=== PATIENT | female | born 1935 | race Caucasian/White ===

== ENCOUNTER → 2016-06-27 | Outpatient (CLI) | payer SELFPAY ==
--- NOTE | 2016-06-27 15:30 | RAD ---
Indication cough. PA and lateral views of the chest were obtained. No prior imaging of the chest is available. The heart and pulmonary vessels appear normal. There are suggested emphysematous changes in the upper lobes. A focal infiltrate in either lung is not seen. Significant pleural fluid is not present. There is no pneumothorax. IMPRESSION: No acute or focal process is seen in the chest
== END | disposition home or self-care (01) ==
LOC: DXRADRC 13:13
PROVIDERS: ATTEND Nurse Practitioner Family
DX: R05 Cough (principal)
CPT/HCPCS: 71020

== ENCOUNTER 2018-04-24 11:44 | Inpatient (IN) | payer MEDICARE, BC ==
[~2018-04-24] VITALS: Ht 160 cm; Wt 107.0 kg
[~2018-04-24 11:44] MED LIST: ASPI81TA59 PO; DILT240C2 PO; ESCITALOPRAM OX10 MG PO; GABA800T3 PO; LISI10TA2 PO; OMEP40CA5 PO; POTA10TA10 PO; RAMI2.5C2 PO; SOLI10TA2 PO; TOLT2CAP PO
[2018-04-24] MEDS ORDERED: IV NORMAL SALINE 1,000ML 1,000 ML IV ONE ×3 (12:00→15:15)
--- NOTE | 2018-04-24 12:07 | PHYS DOC ---
Adult General Chief Complaint Chief Complaint: Neck Pain HPI HPI 83-year-old female presents via EMS from a nursing facility with right-sided facial swelling. According to the report given EMS, the swelling showed up yesterday. She was given 2 doses of Keflex. It appeared to be significantly worse today so they sent her to the emergency room. The patient is unable to tell me very much. She is able to me that it hurts on the right side of her face. When asked if she is able to eat she says yes. Patient was reported to be going on hospice soon, when I ask her about this she doesn't give me an answer. She did not have a fever at the care facility. No reported trauma. Review of Systems Review of Systems Constitutional: Denies fever or chills [] Eyes: Denies change in visual acuity, redness, or eye pain [] HENT: Right sided facial and neck swelling.[] Respiratory: Denies cough or shortness of breath [] Cardiovascular: No additional information not addressed in HPI [] GI: Denies abdominal pain, nausea, vomiting, bloody stools or diarrhea [] : Denies dysuria or hematuria [] Musculoskeletal: Denies back pain or joint pain [] Integument: Denies rash or skin lesions [] Neurologic: Denies headache, focal weakness or sensory changes [] Endocrine: Denies polyuria or polydipsia [] All other systems were reviewed and found to be within normal limits, except as documented in this note. Current Medications Current Medications Current Medications Medications (Trade) Dose Ordered Sig/Ross Start Time Stop Time Status Last Admin Dose Admin Sodium Chloride 1,000 ml @ 1,000 mls/hr 1X ONCE 04/24/18 12:00 04/24/18 12:59 UNV Allergies Allergies Allergies Coded Allergies Type Severity Reaction Last Updated Verified No Known Drug Allergies 04/18/18 No Physical Exam Physical Exam Constitutional: Well developed, well nourished, no acute distress, non-toxic appearance. [] HENT: Normocephalic, atraumatic, poor dentition, facial mass on the right side 4 cm x 12 cm with warm erythematous overlying skin, erythematous and bulging right tympanic membrane minimally visualized.[] Eyes: PERRLA, EOMI, conjunctiva normal, no discharge. [] Neck: Normal range of motion, no tenderness, supple, no stridor. [] Cardiovascular:Heart rate regular rhythm, tachycardia, rate 114, no murmur [] Lungs & Thorax: Bilateral breath sounds clear to auscultation [] Abdomen: Bowel sounds normal, soft, no tenderness, no masses, no pulsatile masses. [] Skin: Warm, dry. [] Back: No tenderness, no CVA tenderness. [] Extremities: No tenderness, no cyanosis, no clubbing, ROM intact, no edema. [] Neurologic: Alert and oriented X 3, normal motor function, normal sensory function, no focal deficits noted. [] Psychologic: Affect normal, judgement normal, mood normal. [] EKG EKG [] Radiology/Procedures Radiology/Procedures [] Impressions: CT scan of the neck with contrast 04/24/2018 CLINICAL HISTORY: Right facial and neck swelling. TECHNIQUE: After the intravenous administration 75 cc of Omnipaque 300, contiguous, 3 mm axial sections were obtained through the neck. One or more of the following individualized dose reduction techniques were utilized for this study: 1. Automated exposure control. 2. Adjustment of the mA and/or kV according to patient size. 3. Use of iterative reconstruction technique. FINDINGS: Soft tissue swelling and increased density is seen within the soft tissues of the right neck and right lateral face. These findings are consistent with an inflammatory/infectious process. This involves the right parotid gland, the right muscles of mastication, the right submandibular gland, the right sternocleidomastoid muscle and the right aspect of the platysma muscle. This extends posteriorly to involve the inferior right aspect of the scalp in adjacent paraspinal musculature. No abnormal fluid collection is seen to suggest evidence of an abscess. Enlarged right sided likely reactive lymph nodes are seen which measure 1 to 1.7 cm in size. The mucosal structures of the nasopharynx, oropharynx, hypopharynx and larynx are within normal limits. The thyroid gland is within normal limits. The left submandibular gland and left parotid gland are within normal limits. The visualized paranasal sinuses are clear. The visualized orbits are within normal limits. Several remaining lower teeth are seen which are fractured and/or riddled with caries. No periapical lucency is noted. Atherosclerotic calcifications are seen in the region carotid bifurcations, right greater than left. Degenerative changes are seen involving the uncovertebral and facet joints throughout the cervical disc spaces. IMPRESSION: Marked soft tissue swelling with increased density is seen throughout the soft tissues of the right lateral face and neck extending to involve the right neck musculature as outlined above along with the right parotid and right submandibular gland. These findings are consistent with an infectious/inflammatory process. No abscess is seen. Electronically signed by: Aaron Aleman MD (04/24/2018 1:13 PM) [id number] DICTATED AND SIGNED BY: AARON ALEMAN MD DATE: 04/24/18 [id number] CC: MIRIAM PALOMINO DO; TABBY PARKER Course & Med Decision Making Course & Med Decision Making Pertinent Labs and Imaging studies reviewed. (See chart for details) The patient's labs are significant for a very elevated white count. Her facial swelling is consistent with cellulitis. CT of the soft tissues does show likely infection, but no drainable abscess. Her urinalysis is significant for UTI. I will treat her with vancomycin, meropenem, and Zosyn. The patient is tachycardic , her respirations are regular and 20, and she has an elevated white count and to suspected sources of infection. The patient does meet sepsis criteria. We have given her 2 liters of normal saline in the emergency room. She is not hypotensive. After 2 L of fluid, her tachycardia did improve. A third liter will be ordered as an inpatient. I discussed the patient with Dr. Paz and he has accepted the patient for admission to the ICU. Greater than 35 minutes of critical care time was spent on this patient exclusive of other billable procedures. [] Dragon Disclaimer Dragon Disclaimer This electronic medical record was generated, in whole or in part, using a voice recognition dictation system. Departure Departure: Impression: Primary Impression: Sepsis Additional Impressions: Facial cellulitis Tachycardia UTI (urinary tract infection) due to urinary indwelling catheter Altered mental status Disposition: ADMITTED INPATIENT Admitting Physician: Alexandrea Paz Condition: GUARDED Referrals: TABBY PARKER (PCP) Problem Qualifiers Primary Impression: Sepsis Sepsis type: sepsis due to unspecified organism Qualified Codes: A41.9 - Sepsis, unspecified organism Additional Impressions: UTI (urinary tract infection) due to urinary indwelling catheter Indwelling urinary catheter type: indwelling urethral catheter Encounter type : initial encounter Qualified Codes: T83.511A - Infection and inflammatory reaction due to indwelling urethral catheter, initial encounter; N39.0 - Urinary tract infection, site not specified Altered mental status Altered mental status type: disorientation Qualified Codes: R41.0 - Disorientation, unspecified MIRIAM PALOMINO DO Apr 24, 2018 12:07
[2018-04-24] MEDS ORDERED: IOHEXOL 300 MG/ML 75 ML VIAL. IV ONE (12:30)
[2018-04-24 12:36] LABS: BASO % 0 % (0-3); EOS # 0.1 x10^3/uL (0.0-0.7); EOS % 1 % (0-3); HEMATOCRIT 37.3 % (36.0-47.0); HEMOGLOBIN 12.3 g/dL (12.0-15.5); LYMPH % 4 % (24-48); MEAN CORPUSCULAR HEMOGLOBIN 29 pg (25-35); MEAN CORPUSCULAR HGB CONC 33 g/dL (31-37); MEAN CORPUSCULAR VOLUME 87 fL (79-100); MONO # 1.3 x10^3/uL (0.0-1.1); MONO % 5 % (0-9); NEUT # 22.1 x10^3uL (1.8-7.7); NEUT % 90 % (31-73); PLATELET COUNT 262 x10^3/uL (140-400); RED BLOOD COUNT 4.31 x10^6/uL (3.50-5.40); RED CELL DISTRIBUTION WIDTH 17.6 % (11.5-14.5); WHITE BLOOD COUNT 24.6 x10^3/uL (4.0-11.0)
[2018-04-24 12:53] LABS: ALBUMIN 2.5 g/dL (3.4-5.0); ALBUMIN/GLOBULIN RATIO 0.6 (1.0-1.7); CALCIUM 8.9 mg/dL (8.5-10.1); CREATININE 1.1 mg/dL (0.6-1.0); GFR 47.6; POTASSIUM 3.6 mmol/L (3.5-5.1); TOTAL BILIRUBIN 0.8 mg/dL (0.2-1.0); TOTAL PROTEIN 6.4 g/dL (6.4-8.2)
--- NOTE | 2018-04-24 13:17 | RAD ---
CT scan of the neck with contrast 04/24/2018 CLINICAL HISTORY: Right facial and neck swelling. TECHNIQUE: After the intravenous administration 75 cc of Omnipaque 300, contiguous, 3 mm axial sections were obtained through the neck. One or more of the following individualized dose reduction techniques were utilized for this study: 1. Automated exposure control. 2. Adjustment of the mA and/or kV according to patient size. 3. Use of iterative reconstruction technique. FINDINGS: Soft tissue swelling and increased density is seen within the soft tissues of the right neck and right lateral face. These findings are consistent with an inflammatory/infectious process. This involves the right parotid gland, the right muscles of mastication, the right submandibular gland, the right sternocleidomastoid muscle and the right aspect of the platysma muscle. This extends posteriorly to involve the inferior right aspect of the scalp in adjacent paraspinal musculature. No abnormal fluid collection is seen to suggest evidence of an abscess. Enlarged right sided likely reactive lymph nodes are seen which measure 1 to 1.7 cm in size. The mucosal structures of the nasopharynx, oropharynx, hypopharynx and larynx are within normal limits. The thyroid gland is within normal limits. The left submandibular gland and left parotid gland are within normal limits. The visualized paranasal sinuses are clear. The visualized orbits are within normal limits. Several remaining lower teeth are seen which are fractured and/or riddled with caries. No periapical lucency is noted. Atherosclerotic calcifications are seen in the region carotid bifurcations, right greater than left. Degenerative changes are seen involving the uncovertebral and facet joints throughout the cervical disc spaces. IMPRESSION: Marked soft tissue swelling with increased density is seen throughout the soft tissues of the right lateral face and neck extending to involve the right neck musculature as outlined above along with the right parotid and right submandibular gland. These findings are consistent with an infectious/inflammatory process. No abscess is seen. Electronically signed by: Aaron Aleman MD (04/24/2018 1:13 PM) [id number]
[2018-04-24 13:18] LABS: BILIRUBIN,URINE NEG (NEG); CLARITY,URINE TURBID; COLOR,URINE YELLOW; GLUCOSE,URINE NEG (NEG)
[2018-04-24 13:19] LABS: NITRITE,URINE POS (NEG); UROBILINOGEN,URINE 2 mg/dL (0.2 mg/dL)
[2018-04-24 13:21] LABS: % BANDS 1 % (0-9); % LYMPHS 2 % (24-48); % MONOS 3 % (0-10); % SEGS 94 % (35-66); PLATELET CLUMP PRESENT; PLT ESTIMATE ADEQUATE (ADEQUATE)
[2018-04-24 13:22] LABS: TOXIC GRANULATION PRESENT; TOXIC VACUOLATION PRESENT
[2018-04-24] MEDS ORDERED: IV NORMAL SALINE 50ML 50 ML ONE ×2 (13:51→14:12)
[2018-04-24] MEDS ORDERED: MEROPENEM 1 GM VIAL IV ONE (13:51)
[2018-04-24] MEDS ORDERED: IV NORMAL SALINE 100ML 100 ML ONE (13:52)
[2018-04-24] MEDS ORDERED: PIPERACILLIN/TAZOBACTAM 4.5 GM VIAL IV ONE ×2 (13:52→14:12)
[2018-04-24] MEDS ORDERED: VANCOMYCIN 2 GM in IV NORMAL SALINE 500ML 500 ML IV ONE ×4 (14:00)
[2018-04-24] MEDS ORDERED: MEROPENEM 1 GM in IV NORMAL SALINE 100ML 100 ML IV SCH (14:00)
[2018-04-24] MEDS ORDERED: PIPERACILLIN/TAZOBACTAM 4.5 GM in IV NORMAL SALINE 50ML 50 ML IV ONE (14:00)
[2018-04-24] MEDS ORDERED: MEROPENEM 1 GM in IV NORMAL SALINE 100ML 100 ML IV ONE (14:45)
[2018-04-24] MEDS ORDERED: ONDANSETRON PF 4 MG/2 ML VIAL. IV PRN (15:15)
[2018-04-24] MEDS: MEROPENEM 1 GM in IV NORMAL SALINE 100ML 100 ML IV SCH ×2 (15:52→22:31)
[2018-04-24] MEDS: VANCOMYCIN PER PHARMACY MC PRN (16:23)
[2018-04-24] MEDS ORDERED: MORPHINE SULFATE 2 MG/ML DISP.SYRIN. IV PRN (18:15)
[2018-04-24 20:04] VITALS: BP 151/73
[2018-04-24 21:00] VITALS: BP 123/70
[2018-04-24 22:25] VITALS: BP 121/83
[2018-04-24] MEDS: NYSTATIN TOPICAL POWDER 15GM BOTTLE. TP SCH (22:32)
[2018-04-24] MEDS: MICONAZOLE NITRATE 2% TOPICAL CREAM 28GM TUBE. TP SCH (22:32)
[2018-04-24 23:09] VITALS: BP 149/72
[2018-04-24 23:31] VITALS: BP 101/60
[2018-04-25] VITALS (37 sets, daily range): BP systolic 79–143; BP diastolic 52–96
[2018-04-25] MEDS: IV NORMAL SALINE 1,000ML 1,000 ML IV SCH ×3 (02:35→14:14)
[2018-04-25] MEDS: MEROPENEM 1 GM in IV NORMAL SALINE 100ML 100 ML IV SCH ×3 (05:37→21:43)
[2018-04-25 06:24] LABS: BASO # 0.1 x10^3/uL (0.0-0.2); BASO % 1 % (0-3); EOS % 0 % (0-3); HEMOGLOBIN 10.9 g/dL (12.0-15.5); LYMPH # 0.9 x10^3/uL (1.0-4.8); LYMPH % 3 % (24-48); MEAN CORPUSCULAR HEMOGLOBIN 29 pg (25-35); MEAN CORPUSCULAR HGB CONC 33 g/dL (31-37); MEAN CORPUSCULAR VOLUME 88 fL (79-100); MONO # 1.3 x10^3/uL (0.0-1.1); MONO % 4 % (0-9); NEUT # 27.7 x10^3uL (1.8-7.7); NEUT % 92 % (31-73); PLATELET COUNT 253 x10^3/uL (140-400); RED BLOOD COUNT 3.77 x10^6/uL (3.50-5.40); RED CELL DISTRIBUTION WIDTH 17.8 % (11.5-14.5); WHITE BLOOD COUNT 30.1 x10^3/uL (4.0-11.0)
[2018-04-25 06:42] LABS: ALBUMIN/GLOBULIN RATIO 0.6 (1.0-1.7); CALCIUM 7.9 mg/dL (8.5-10.1); GFR 53.1; MAGNESIUM 1.2 mg/dL (1.8-2.4); POTASSIUM 3.1 mmol/L (3.5-5.1); TOTAL BILIRUBIN 0.6 mg/dL (0.2-1.0); TOTAL PROTEIN 5.6 g/dL (6.4-8.2)
[2018-04-25] MEDS ORDERED: NOREPINEPHRINE BITARTRATE 4 MG/4 ML VIAL. IV ONE (06:45)
[2018-04-25] MEDS ORDERED: NOREPINEPHRINE BITARTRATE 8 MG in IV NORMAL SALINE 250ML 250 ML IV PRN (06:45)
[2018-04-25] MEDS: HYDROCORTISONE SOD SUCC/PF 100 MG/2 ML VIAL. IV SCH ×3 (06:46→21:59)
[2018-04-25] MEDS: LISINOPRIL 5 MG TABLET. PO SCH (09:00)
[2018-04-25] MEDS: DIGOXIN 250 MCG TABLET PO SCH (09:00)
[2018-04-25] MEDS: MICONAZOLE NITRATE 2% TOPICAL CREAM 28GM TUBE. TP SCH ×2 (13:47→21:44)
[2018-04-25] MEDS: NYSTATIN TOPICAL POWDER 15GM BOTTLE. TP SCH ×2 (13:47→21:44)
[2018-04-25] MEDS: VANCOMYCIN 1.75 GM in IV NORMAL SALINE 500ML 500 ML IV SCH (17:08)
[2018-04-25] MEDS ORDERED: IV NORMAL SALINE 1,000ML 1,000 ML IV ONE (17:45)
[2018-04-25] MEDS ORDERED: MAGNESIUM SULFATE 2GM 50 ML IV ONE (17:45)
[2018-04-25] MEDS ORDERED: POTASSIUM CHLORIDE 20 MEQ/15 ML ORAL LIQUID. PO ONE (18:00)
[2018-04-25] MEDS: POTASSIUM CL 20MEQ IN 0.9%NACL 1,000 ML IV SCH (18:12)
--- NOTE | 2018-04-25 18:13 | HP ---
ADMIT DATE: 04/24/2018 HISTORY OF PRESENT ILLNESS: The patient is an 83-year-old female patient, a resident at [facility], who was brought to the Emergency Room for marked right-sided facial swelling. According to the report given EMS, the swelling showed up yesterday, she was given 2 doses of Keflex, today that to be significantly worse and therefore, she was sent to the Emergency Room. The patient is unable to give any useful information except that it hurts on the right side of her face. She was extensively investigated in the Emergency Room, was found to be septic. Her white cell count was high at 24,600. Her urinalysis was positive for nitrite and there was large amount of leukocyte esterase and was admitted with sepsis and right-sided parotitis. She has no known drug allergies and the patient was admitted to the ICU, was continued on IV Levophed because she was hypotensive. She was also continued on meropenem as well as vancomycin. PAST MEDICAL HISTORY: Significant for morbid obesity, hypertension, peripheral neuropathy, anxiety and depression, gastroesophageal reflux disease and incontinence. PAST SURGICAL HISTORY: Unremarkable. FAMILY HISTORY: Unremarkable. SOCIAL HISTORY: She lives at home with her son. She does not smoke, drink alcohol or use any recreational drugs. REVIEW OF SYSTEMS: Unremarkable and unobtainable. MEDICATIONS: She is currently on following medications: She is on diltiazem 120 mg once a day, lisinopril 10 mg once a day, ramipril 2.5 mg daily, aspirin 81 mg once a day, gabapentin 800 mg once a day, escitalopram oxalate 10 mg daily, potassium chloride 10 mEq once a day, omeprazole 40 mg once a day, VESIcare 10 mg once a day and Detrol-LA 2 mg daily. PHYSICAL EXAMINATION: GENERAL: On arrival to the Emergency Room, the patient was encephalopathic. No pallor, jaundice, cyanosis, or thyromegaly. No jugular venous distension. No lower limb edema. VITAL SIGNS: Her heart rate was 116, blood pressure 113/57, temperature was 98.5, respiratory rate 20, and oxygen saturation was 93% on room air. HEAD, EYES, EARS, NOSE, AND THROAT: Showed normocephalic, atraumatic. NECK: Supple. HEART: Showed normal first and second sounds. No gallop, rub or murmur. CHEST: Clear to auscultation. No crepitation or rhonchi. ABDOMEN: Distended, soft, nontender. NEUROLOGIC: She was encephalopathic. She has marked swelling of the right side of the face consistent with the parotitis. LABORATORY DATA: Her lab work on arrival showed that her white cell count was 24,600, hemoglobin 12.3, hematocrit 37.3, MCV 87 and platelet count 262,000 with a manual differential showed 90% polymorphs, 4% lymphocytes and 5% monocytes. Her chemistry showed a serum sodium 134, potassium 3.6, chloride 101, bicarbonate 22, anion gap of 11, BUN 20, creatinine 1.1, estimated GFR was 47 mL per minute, her glucose 103, calcium was 8.9, lactic acid is only 1.1. Total bilirubin, AST, ALT, alkaline phosphatase were normal. Total protein was 6.4, albumin 2.5. Urinalysis showed the urine was yellow, clear with a pH of 5.5, specific gravity 1.020. The urine was negative for glucose, trace of ketones, small amount of blood, positive for nitrites and there was large amount of leukocyte esterase. ASSESSMENT AND PLAN: The patient was admitted to the ICU. She was treated with IV fluids in the Emergency Room and was started on hydrocortisone, Levophed together with vancomycin and meropenem. The source of infection, most likely acute parotitis as well as possible urinary tract infection. We will continue with monitoring her lab work and once we have the culture results, we will adjust antibiotics accordingly. EVAN MONTOYA MD DR: JUAN/preston JOB#: [id number] / [id number]
--- NOTE | 2018-04-25 20:36 | PN ---
DATE: SUBJECTIVE: The patient is resting, slightly propped up in bed, definitely more awake, alert. Denied any complaint except that he has marked pain and tenderness over the right parotid gland. The nursing staff stated that she was encephalopathic and lethargic the whole day and she has just awakened this afternoon. She has eaten some of her dinner with difficulty. PHYSICAL EXAMINATION: GENERAL: When I examined her, she looked well and was clearly in no apparent respiratory distress. No pallor, jaundice, cyanosis, or thyromegaly. No jugular venous distension. No lower limb edema. VITAL SIGNS: Her heart rate was 102, blood pressure was 131/82, temperature was 98.9, respiratory rate was 18 and oxygen saturation was 98% on 3 liters of oxygen by nasal cannula. HEAD, EYES, EARS, NOSE AND THROAT: Showed normocephalic, atraumatic. NECK: Supple. HEART: Showed normal first and second heart sounds. No gallop or murmur. CHEST: Clear to auscultation. No crepitation or rhonchi. ABDOMEN: Distended, soft and nontender. NEUROLOGIC: She is definitely more awake, alert, although confused, marked swelling over the right parotid gland, which is very tender to touch, but all her cranial nerves are intact. She moves upper extremities without difficulty. She is mostly bedbound, chair bound. She has an indwelling Caldwell catheter. LABORATORY DATA: Her lab work this morning showed a white cell count was 30,000, hemoglobin 11, hematocrit 33, MCV 88, and platelet count 253,000. Her chemistry showed a serum sodium 138, potassium 3.1, chloride 106, bicarbonate 20, anion gap of 12, BUN 17, creatinine 1, estimated GFR was 53 mL per minute. Her lactic acid is only 1.1. Her total bilirubin, AST, ALT, alkaline phosphatase were normal. Her magnesium was only 1.2. Her total protein was 5.6 and albumin 2. ASSESSMENT: Sepsis, likely due to acute parotitis as well as urinary tract infection. PLAN: To continue with IV vancomycin as well as meropenem. We will replenish her potassium and magnesium. Continue with IV fluid and continue with meropenem and vancomycin. EVAN MONTOYA MD DR: JUAN/preston JOB#: [id number] / [id number]
[2018-04-25] MEDS: LACTOBACILLUS RHAMNOSUS GG 1 CAPSULE. PO SCH (21:43)
[2018-04-26] VITALS (13 sets, daily range): BP systolic 109–141; BP diastolic 57–85
[2018-04-26] MEDS: IV NORMAL SALINE 1,000ML 1,000 ML IV SCH (03:34)
[2018-04-26] MEDS ORDERED: ONDANSETRON PF 4 MG/2 ML VIAL. IV PRN (04:45)
[2018-04-26] MEDS: MEROPENEM 1 GM in IV NORMAL SALINE 100ML 100 ML IV SCH ×3 (05:50→21:44)
[2018-04-26] MEDS: HYDROCORTISONE SOD SUCC/PF 100 MG/2 ML VIAL. IV SCH ×2 (05:51→13:45)
[2018-04-26] MEDS: POTASSIUM CL 20MEQ IN 0.9%NACL 1,000 ML IV SCH (05:51)
[2018-04-26 06:24] LABS: HEMATOCRIT 29.3 % (36.0-47.0); HEMOGLOBIN 9.6 g/dL (12.0-15.5); RED BLOOD COUNT 3.3 x10^6/uL (3.50-5.40); RED CELL DISTRIBUTION WIDTH 18.7 % (11.5-14.5); WHITE BLOOD COUNT 23.6 x10^3/uL (4.0-11.0)
[2018-04-26 06:39] LABS: ALBUMIN 1.8 g/dL (3.4-5.0); ALBUMIN/GLOBULIN RATIO 0.5 (1.0-1.7); CALCIUM 7.5 mg/dL (8.5-10.1); CREATININE 0.7 mg/dL (0.6-1.0); GFR 80.1; MAGNESIUM 1.7 mg/dL (1.8-2.4); POTASSIUM 3.4 mmol/L (3.5-5.1); TOTAL BILIRUBIN 0.4 mg/dL (0.2-1.0); TOTAL PROTEIN 5.2 g/dL (6.4-8.2)
[2018-04-26] MEDS: LISINOPRIL 5 MG TABLET. PO SCH (07:53)
[2018-04-26] MEDS: LACTOBACILLUS RHAMNOSUS GG 1 CAPSULE. PO SCH ×2 (07:55→21:00)
[2018-04-26] MEDS: DIGOXIN 250 MCG TABLET PO SCH (07:55)
[2018-04-26 07:56] LABS: DIG 1.2 ng/dL (0.9-2.0)
[2018-04-26] MEDS: MICONAZOLE NITRATE 2% TOPICAL CREAM 28GM TUBE. TP SCH ×2 (09:00→21:00)
[2018-04-26] MEDS: NYSTATIN TOPICAL POWDER 15GM BOTTLE. TP SCH ×2 (09:00→21:00)
[2018-04-26] MEDS: POTASSIUM CL 40MEQ IN 0.9%NACL 1,000 ML IV SCH ×2 (13:43→17:45)
[2018-04-26 16:56] LABS: VANC TR 13.8 mcg/mL (10.0-20.0)
[2018-04-26] MEDS: VANCOMYCIN 1.75 GM in IV NORMAL SALINE 500ML 500 ML IV SCH (17:18)
[2018-04-26] MEDS: VANCOMYCIN PER PHARMACY MC PRN (17:21)
--- NOTE | 2018-04-26 20:38 | PN ---
DATE: 04/26/2018 SUBJECTIVE: The patient is resting, slightly propped up in bed, in no apparent respiratory distress. Awake, alert, continued to complain of pain in the right side of the face. Her intake continued to be poor according to nursing staff. PHYSICAL EXAMINATION: GENERAL: When I examined her, she was somewhat pale, but no jaundice or cyanosis. No lymphadenopathy, no thyromegaly. No jugular venous distension. No limb edema. VITAL SIGNS: Her heart rate was 77, blood pressure was 136/85, temperature was 98, respiratory rate was 16 and oxygen saturation was 99% on 4 liters of oxygen. HEAD, EYES, EARS, NOSE AND THROAT: Showed normocephalic, atraumatic. NECK: Supple. HEART: Showed normal first and second heart sounds. No gallop, rub or murmur. CHEST: Clear to auscultation. No crepitation or rhonchi. ABDOMEN: Distended, soft, nontender. NEUROLOGIC: She was awake, alert, responding appropriately. All cranial nerves intact. She moves extremities without difficulty, although she is mostly bedbound and chair bound. Her intake over the last 24 hours was 4650. No output was recorded. LABORATORY DATA: Showed a white cell count of 23,600, hemoglobin 9.6, hematocrit 29.3, MCV 89 and platelet count 245,000. Her chemistry showed a serum sodium 141, potassium 3.4, chloride 111, bicarbonate 20, anion gap of 10, BUN 16, creatinine 0.7, estimated GFR was 80 mL per minute. Her glucose 111, calcium was 7.5, magnesium 1.7. Total bilirubin, AST, ALT, alkaline phosphatase were normal. Her total protein was 5.2, albumin was 1.8. ASSESSMENT: Sepsis, likely due to acute proctitis as well as urinary tract infection. So far, her urine culture has grown mixed urogenital malena about 50,000-100,000 colony forming units/mL. Her blood cultures showed no growth after 2 days. PLAN: My plan is to continue with the IV fluid, continue with IV meropenem and vancomycin. Continue with all her other medications. I cut down her hydrocortisone to 100 mg twice a day and we will repeat all her labs tomorrow. EVAN MONTOYA MD DR: JUAN/preston JOB#: [id number] / [id number]
[2018-04-26] MEDS: LORazepam 2 MG/ML VIAL IV PRN (23:02)
[2018-04-27] MEDS: POTASSIUM CL 40MEQ IN 0.9%NACL 1,000 ML IV SCH ×2 (00:29→11:46)
[2018-04-27 00:34] VITALS: BP 148/78
[2018-04-27] MEDS: HYDROCORTISONE SOD SUCC/PF 100 MG/2 ML VIAL. IV SCH ×2 (02:14→15:40)
[2018-04-27 05:25] VITALS: BP 121/89
[2018-04-27] MEDS: MEROPENEM 1 GM in IV NORMAL SALINE 100ML 100 ML IV SCH ×3 (05:38→22:40)
[2018-04-27 06:13] LABS: CALCIUM 7.7 mg/dL (8.5-10.1); CREATININE 0.7 mg/dL (0.6-1.0); GFR 80.1; POTASSIUM 4.3 mmol/L (3.5-5.1)
[2018-04-27 06:15] LABS: BASO % 0 % (0-3); EOS % 0 % (0-3); HEMATOCRIT 31.3 % (36.0-47.0); HEMOGLOBIN 10.3 g/dL (12.0-15.5); LYMPH # 0.6 x10^3/uL (1.0-4.8); LYMPH % 3 % (24-48); MEAN CORPUSCULAR HEMOGLOBIN 29 pg (25-35); MEAN CORPUSCULAR HGB CONC 33 g/dL (31-37); MEAN CORPUSCULAR VOLUME 88 fL (79-100); MONO # 0.5 x10^3/uL (0.0-1.1); MONO % 3 % (0-9); NEUT % 94 % (31-73); PLATELET COUNT 276 x10^3/uL (140-400); RED BLOOD COUNT 3.55 x10^6/uL (3.50-5.40); WHITE BLOOD COUNT 18.1 x10^3/uL (4.0-11.0)
[2018-04-27 07:53] LABS: % BANDS 2 % (0-9); % BASOS 0 % (0-3); % EOS 0 % (0-5); % LYMPHS 6 % (24-48); % MONOS 1 % (0-10); % SEGS 91 % (35-66); PLT ESTIMATE ADEQUATE (ADEQUATE)
[2018-04-27 07:54] LABS: ANISOCYTOSIS PRESENT; HYPERSEGS PRESENT; HYPOCHROMIA PRESENT; OVALOCYTES OCC; TOXIC GRANULATION MOD
[2018-04-27] MEDS: MICONAZOLE NITRATE 2% TOPICAL CREAM 28GM TUBE. TP SCH ×2 (09:00→20:59)
[2018-04-27] MEDS: LISINOPRIL 5 MG TABLET. PO SCH (09:36)
[2018-04-27] MEDS: DIGOXIN 250 MCG TABLET PO SCH (09:36)
[2018-04-27] MEDS: LACTOBACILLUS RHAMNOSUS GG 1 CAPSULE. PO SCH ×2 (09:36→20:58)
[2018-04-27] MEDS: NYSTATIN TOPICAL POWDER 15GM BOTTLE. TP SCH ×2 (09:37→21:06)
[2018-04-27 10:37] VITALS: BP 126/61
--- NOTE | 2018-04-27 14:23 | PN ---
DATE: 04/27/2018 SUBJECTIVE: The patient is resting, slightly propped up in bed, in no apparent distress. She is definitely more awake, alert, responding appropriately. She denied any pain. The nursing staff said she is definitely more weak, has been able to eat and drink. Did not require any pain medication. PHYSICAL EXAMINATION: GENERAL: When I examined her, she looked well and was clearly in no apparent respiratory distress, slightly pale, but no jaundice, cyanosis or thyromegaly. No jugular venous distension. No limb edema. VITAL SIGNS: Her heart rate was 92, blood pressure was 126/61, temperature was 97.8, respiratory rate 22 and oxygen saturation was 100% on 4 liters of oxygen by nasal cannula. HEAD, EYES, EARS, NOSE AND THROAT: Showed normocephalic, atraumatic. The swelling of the right parotid gland erythema has largely subsided. NECK: Supple. HEART: Showed normal first and second heart sounds. No gallop, rub or murmur. CHEST: Clear to auscultation. No crepitation or rhonchi. ABDOMEN: Distended, soft, nontender. NEUROLOGIC: She was hard of hearing, otherwise all cranial nerves are intact. She moves upper extremities to much good extent than lower extremities. She is mostly bedbound, chair bound. Her intake over the last 24 hours was 4650, output was 550. LABORATORY DATA: As of this morning, her white cell count is down to 18,000, hemoglobin 10, hematocrit 31, MCV 88 and platelet count of 276,000. Her chemistry showed serum sodium of 141, potassium 4.3, chloride 111, bicarbonate 20, anion gap of 9, BUN 19, creatinine 0.7, estimated GFR was 80 mL per minute. Her glucose 112 and calcium was 7.7. Her urine culture showed growth of mixed urogenital malena of 50-100,000 colony forming units per mL. Her blood cultures are so far showed no growth as well as after 3 days. ASSESSMENT: Sepsis likely to acute parotitis as well as urinary tract infection. So far her urine culture has grown mixed urogenital malena and blood cultures are so far showed no growth after 3 days. PLAN: To continue with IV fluid, continue IV meropenem. EVAN MONTOYA MD DR: JUAN/preston JOB#: [id number] / [id number]
[2018-04-27 15:04] VITALS: BP 120/80
[2018-04-27] MEDS: VANCOMYCIN 1.75 GM in IV NORMAL SALINE 500ML 500 ML IV SCH (17:38)
[2018-04-27 19:37] VITALS: BP 122/62
[2018-04-27 22:42] VITALS: BP 124/69
[2018-04-28] MEDS: POTASSIUM CL 40MEQ IN 0.9%NACL 1,000 ML IV SCH ×2 (01:17→09:45)
[2018-04-28] MEDS: HYDROCORTISONE SOD SUCC/PF 100 MG/2 ML VIAL. IV SCH (02:32)
[2018-04-28 05:43] VITALS: BP 110/74
[2018-04-28] MEDS: MEROPENEM 1 GM in IV NORMAL SALINE 100ML 100 ML IV SCH ×3 (05:52→22:13)
[2018-04-28 07:49] LABS: ALBUMIN 1.7 g/dL (3.4-5.0); ALBUMIN/GLOBULIN RATIO 0.4 (1.0-1.7); CALCIUM 8.1 mg/dL (8.5-10.1); CREATININE 0.8 mg/dL (0.6-1.0); GFR 68.7; POTASSIUM 5.5 mmol/L (3.5-5.1); TOTAL BILIRUBIN 0.3 mg/dL (0.2-1.0); TOTAL PROTEIN 5.9 g/dL (6.4-8.2)
[2018-04-28] MEDS: LACTOBACILLUS RHAMNOSUS GG 1 CAPSULE. PO SCH ×2 (08:29→21:00)
[2018-04-28] MEDS: LISINOPRIL 5 MG TABLET. PO SCH (08:32)
[2018-04-28] MEDS: DIGOXIN 250 MCG TABLET PO SCH (08:32)
[2018-04-28] MEDS: MICONAZOLE NITRATE 2% TOPICAL CREAM 28GM TUBE. TP SCH ×2 (08:34→21:00)
[2018-04-28] MEDS: NYSTATIN TOPICAL POWDER 15GM BOTTLE. TP SCH ×2 (08:34→21:00)
[2018-04-28 08:56] LABS: HEMATOCRIT 32.8 % (36.0-47.0); HEMOGLOBIN 10.8 g/dL (12.0-15.5); RED BLOOD COUNT 3.66 x10^6/uL (3.50-5.40); RED CELL DISTRIBUTION WIDTH 19.5 % (11.5-14.5); WHITE BLOOD COUNT 9.8 x10^3/uL (4.0-11.0)
--- NOTE | 2018-04-28 11:13 | PN ---
DATE: 04/28/2018 SUBJECTIVE: The patient is resting, slightly propped up in bed, in no apparent respiratory distress. Awake, alert. Denied any complaint. Nursing staff stated that she had an uneventful night. Her potassium was 5.5, to discontinue the IV fluid. PHYSICAL EXAMINATION: GENERAL: When I examined her, she looked well and was clearly in no apparent respiratory distress, slightly pale, but no jaundice, cyanosis, or thyromegaly. No jugular venous distension. No limb edema. VITAL SIGNS: Her heart rate was 106, blood pressure was 110/74, temperature was 98.4, respiratory rate was 18, and oxygen saturation was 100% on 4 liters of oxygen. HEAD, EYES, EARS, NOSE, AND THROAT: Normocephalic, atraumatic. NECK: Supple. The tenderness and swelling over the right parotid gland has mostly subsided. HEART: Showed normal first and second sounds. No gallop, rub, or murmur. CHEST: Clear to auscultation. No crepitation or rhonchi. ABDOMEN: Distended, soft, nontender. NEUROLOGIC: She was very hard of hearing, otherwise all other cranial nerves are intact. She moves upper extremities to much good extent than her extremities. She is mostly bedbound, chair bound. Her intake over the last 24 hours was 1070, output was 625. LABORATORY DATA: As of this morning, her white cell count was 9800, hemoglobin 11, hematocrit 33, MCV 90, and platelet count 279,000. Serum sodium was 138, potassium 5.5, chloride 112, bicarbonate 15, anion gap of 11, BUN 23, creatinine was 0.8, estimated GFR was 68 mL per minute. Her glucose 106, calcium was 8.1. Total bilirubin, AST, ALT, alkaline phosphatase were normal. Total protein was 5.9, albumin was 2.7. Her vancomycin on tox screen was 13.8. Urinalysis was unremarkable. Her urine culture showed mixed urogenital malena and her blood cultures were so far negative. ASSESSMENT AND PLAN: My plan is to discontinue the IV fluid, discontinue vancomycin. EVAN MONTOYA MD DR: JUAN/preston JOB#: [id number] / [id number]
[2018-04-28 12:42] VITALS: BP 115/81
[2018-04-28 17:40] VITALS: BP 111/76
[2018-04-28] MEDS: LORazepam 2 MG/ML VIAL IV PRN (18:38)
[2018-04-28 19:13] LABS: CALCIUM 8.5 mg/dL (8.5-10.1); CREATININE 0.8 mg/dL (0.6-1.0); GFR 68.7; POTASSIUM 4.4 mmol/L (3.5-5.1)
[2018-04-28 19:52] VITALS: BP 114/79
[2018-04-29 05:27] VITALS: BP 101/66
[2018-04-29] MEDS: MEROPENEM 1 GM in IV NORMAL SALINE 100ML 100 ML IV SCH ×2 (05:57→14:00)
[2018-04-29 07:19] LABS: CALCIUM 8.3 mg/dL (8.5-10.1); CREATININE 0.7 mg/dL (0.6-1.0); GFR 80.1
[2018-04-29] MEDS: LACTOBACILLUS RHAMNOSUS GG 1 CAPSULE. PO SCH (07:58)
[2018-04-29] MEDS: DIGOXIN 250 MCG TABLET PO SCH (08:01)
[2018-04-29] MEDS: NYSTATIN TOPICAL POWDER 15GM BOTTLE. TP SCH (09:13)
[2018-04-29] MEDS: MICONAZOLE NITRATE 2% TOPICAL CREAM 28GM TUBE. TP SCH (09:13)
[2018-04-29 11:14] VITALS: BP 112/75
[2018-04-29 15:09] VITALS: BP 108/76
--- NOTE | 2018-04-29 16:16 | DS ---
DATE OF DISCHARGE: HOSPITAL COURSE: The patient is an 83-year-old female patient who was residing at [facility], who was admitted with sepsis. She apparently was noted to have marked right-sided facial swelling that was initially reported to me as cellulitis; however, when I saw her, it was clear that she has sialadenitis or parotitis. On urinalysis, she also had large amount of leukocyte esterase and was admitted directly for treatment of sepsis due to parotitis and urinary tract infection. She was started on Levophed. She was hypotensive, was given IV fluid, started on vancomycin and meropenem. The patient did well. Her white cell count came down from 30,000-9800. Her chemistry also has improved. Her BUN came down and that has improved; however, the patient continued to be extremely encephalopathic and demented. She also has severely impaired mobility. She is mostly bedbound, chair bound and therefore her family opted for palliative care and hospice care and she was discharged. She will be discharged home on hospice. PHYSICAL EXAMINATION: GENERAL: When I saw her today, she looked well and was clearly in no apparent respiratory distress. No pallor, jaundice, cyanosis, or thyromegaly. No jugular venous distension. No lower limb edema. VITAL SIGNS: Her heart rate was 113, blood pressure 112/75, temperature was 97.5, respiratory rate 24, and oxygen saturation was 96% on 2 liters of oxygen. HEAD, EYES, EARS, NOSE AND THROAT: Showed normocephalic, atraumatic. NECK: Supple. HEART: Showed normal first and second heart sounds. No gallop, rub or murmur. CHEST: Clear to auscultation. No crepitation or rhonchi. ABDOMEN: Distended, soft, nontender. NEUROLOGIC: She is very hard of hearing, but without any obvious lateralizing sign. All her cranial nerves intact. She moves upper extremities to much greater extent than her lower extremities, mostly bed bound and chair bound. Her intake over the last 24 hours was 1100, output 275. LABORATORY WORKUP: Showed a white cell count 9800, hemoglobin 11, hematocrit 33, MCV 90 and platelet count 279,000. Serum sodium was 143, potassium 4, chloride 112, bicarbonate 20, anion gap of 11, BUN 27, creatinine 0.7, estimated GFR was 80 mL per minute. Her calcium was 8.3. She was discharged, her urine culture and sensitivity showed the growth of 50-100,000 colony forming units of mixed urogenital malena. Her blood cultures were negative after 5 days. DISCHARGE MEDICATIONS: The patient was discharged to home on hospice to continue on aspirin 81 mg once a day, diltiazem 120 mg once a day, escitalopram oxalate 10 mg daily, lisinopril 10 mg once a day, omeprazole 40 mg once a day, potassium chloride 10 mEq daily, and Detrol-LA 2 mg once a day. She was also discharged on Roxanol 20 mg per mL solution to give 0.25-1 mL that is 5-20 mg mg sublingually every 2 hours as needed and Ativan for Intensol 2 mg/mL to give 0.25-1 mL that is 0.5-2 mg sublingually every 2 hours as needed for anxiety. FINAL DISCHARGE DIAGNOSES: Sepsis, likely due to acute parotitis as well as urinary tract infection, resolved. Other medical problems include morbid obesity, hypertension, peripheral neuropathy, anxiety, depression, gastroesophageal reflux disease, urinary retention and incontinence, advanced dementia. EVAN MONTOYA MD DR: JUAN/preston JOB#: [id number] / [id number]
== END 2018-04-29 16:20 | disposition hospice, home (50) | DRG 871 ==
LOC: ER 11:44 → UNDOADMIN 15:26 → ICU 15:26 → 1 SOUTH 04-27 06:13
PROVIDERS: ADMIT Internal Medicine; ATTEND Internal Medicine
DX: A41.9 Sepsis, unspecified organism (principal); E43 Unspecified severe protein-calorie malnutrition; N39.0 Urinary tract infection, site not specified; G93.40 Encephalopathy, unspecified; L03.211 Cellulitis of face; Z68.41 Body mass index [BMI] 40.0-44.9, adult; E66.01 Morbid (severe) obesity due to excess calories; F03.90 Unspecified dementia, unspecified severity, without behavioral disturbance, psychotic disturbance, mood disturbance, and anxiety; F32.9 Major depressive disorder, single episode, unspecified; K11.21 Acute sialoadenitis; I10 Essential (primary) hypertension; F41.9 Anxiety disorder, unspecified; K21.9 Gastro-esophageal reflux disease without esophagitis; G62.9 Polyneuropathy, unspecified; Y92.89 Other specified places as the place of occurrence of the external cause; Z79.899 Other long term (current) drug therapy; Z51.5 Encounter for palliative care
CPT/HCPCS: 36415; 70491; 80048; 80053; 80162; 80202; 81003; 82947; 83605; 83735; 85007; 85025; 85027; 87040; 87086; 87641; 96361; 96365; J2060; J2185; J2543; J3010; J3370; J3475; J7040; J7050; Q9967; 99291-25; J7030